=== PATIENT | male | born 1965 | race Caucasian/White ===

== ENCOUNTER 2023-12-25 14:15 | Emergency (ER) | payer MEDICAID ==
[~2023-12-25] VITALS: Ht 175.3 cm; Wt 68.2 kg
[~2023-12-25 14:15] MED LIST: CLIN300C56; GABA300C PO; HYDR-3972
[2023-12-25 15:25] LABS: BASOPHILS # (AUTO) 0.1 X10'3 (0-0.2); BASOPHILS % (AUTO) 0.9 % (0-1); EOSINOPHILS # (AUTO) 0.1 X10'3 (0-0.9); EOSINOPHILS % (AUTO) 0.9 % (0-6); HEMATOCRIT 42.4 % (42.0-52.0); HEMOGLOBIN 13.9 g/dl (14.0-17.9); MEAN CORPUSCULAR HEMOGLOBIN 27.8 PG (27.0-31.0); MEAN CORPUSCULAR HGB CONC 32.9 g/dL (33.0-36.5); MEAN CORPUSCULAR VOLUME 84.5 FL (78-98); MEAN PLATELET VOLUME 9.7 FL (7.4-10.4); MONOCYTES # (AUTO) 0.7 X10'3 (0-0.9); MONOCYTES % (AUTO) 7.6 % (2-12); NEUTROPHILS # (AUTO) 7.6 X10'3 (1.8-7.7); NEUTROPHILS % (AUTO) 79.6 % (42-75); PLATELET COUNT 222 X10'3 (140-440); RED BLOOD COUNT 5.02 X10'6 (4.70-6.10); RED CELL DISTRIBUTION WIDTH 16.5 % (11.5-14.5); WHITE BLOOD COUNT 9.5 X10'3 (4.5-11.0)
[2023-12-25 15:44] LABS: ALBUMIN 3.4 G/DL (3.4-5.0); ANION GAP 8 (8-16); BLOOD UREA NITROGEN 24 MG/DL (7-18); CALCIUM 8.6 MG/DL (8.5-10.1); CHLORIDE 105 MMOL/L (99-107); CREATININE 1.26 MG/DL (0.60-1.10); GLUCOSE 145 MG/DL (70-104); POTASSIUM 3.5 MMOL/L (3.5-5.1); PRO BRAIN NATRIURETIC PEPTIDE 6442 PG/ML (0-125); SODIUM 140 MMOL/L (135-145); TOTAL CARBON DIOXIDE 27.4 MMOL/L (24-32); eCRCL 61 ML/MIN; eGFR 59 ML/MIN
[2023-12-25 22:01] VITALS: TEMP 98.6
[2023-12-25] MEDS ORDERED: acetaminophen 325mg tablet PO ONE (22:55)
[2023-12-25 23:00] VITALS: RESP 20
[2023-12-26] MEDS ORDERED: FURO-150 PO (00:05)
[2023-12-26] MEDS ORDERED: furosemide 20MG tablet PO ONE (00:05)
[2023-12-26] MEDS ORDERED: ALBU18HF2 INH (00:05)
[2023-12-26 00:14] VITALS: BP 151/113; PULSE 94; O2SAT 97
== END 2023-12-26 00:16 | disposition home or self-care (01) ==
LOC: ER 14:15
DX: R03.0 Elevated blood-pressure reading, without diagnosis of hypertension (principal); R60.1 Generalized edema; R06.02 Shortness of breath; F17.200 Nicotine dependence, unspecified, uncomplicated; M79.89 Other specified soft tissue disorders; Z79.899 Other long term (current) drug therapy
CPT/HCPCS: 36415; 71045; 80048; 83880; 84484; 85025; 93005; 99285